=== PATIENT | male | born 1990 | race Caucasian/White ===

== ENCOUNTER 2017-01-09 22:42 | Emergency (ER) | payer SELFPAY ==
[~2017-01-09] VITALS: Ht 177.8 cm; Wt 79.4 kg
[~2017-01-09 22:42] MED LIST: AMOXICILLIN500 M2 PO; KEFLEX500 MG PO; MOTRIN800 MG PO; NAPROSYN500 MG PO; NKHM; VICODIN ES 7501 TAB PO; ZANTAC 150150 MG PO; ZANTAC150 MG PO
[2017-01-09] MEDS ORDERED: ULTRAM50 MG PO (23:21)
== END 2017-01-10 | disposition home or self-care (01) ==
LOC: ED 22:42
DX: K40.90 Unilateral inguinal hernia, without obstruction or gangrene, not specified as recurrent (principal)

== ENCOUNTER 2017-01-28 21:42 | Emergency (ER) | payer SELFPAY ==
[~2017-01-28] VITALS: Ht 177.8 cm; Wt 77.1 kg
[~2017-01-28 21:42] MED LIST changes: +ULTRAM50 MG PO
[2017-01-28] MEDS ORDERED: ULTRAM50 MG PO (22:51)
== END 2017-01-28 22:58 | disposition home or self-care (01) ==
LOC: ED 21:42
DX: K46.9 Unspecified abdominal hernia without obstruction or gangrene (principal); F17.200 Nicotine dependence, unspecified, uncomplicated

== ENCOUNTER → 2017-03-10 | Day surgery (SDC) | payer OTHER ==
[2017-03-07 12:19] LABS: BILIRUBIN NEGATIVE (NEGATIVE); BLOOD NEGATIVE (NEGATIVE); CLARITY CLEAR (CLEAR); COLOR YELLOW (YELLOW); GLUCOSE NEGATIVE (NEGATIVE); KETONE NEGATIVE (NEGATIVE); LEUKO ESTERASE NEGATIVE (NEGATIVE); NITRITE NEGATIVE (NEGATIVE); PROTEIN NEGATIVE (NEGATIVE); SPECIFIC GRAVITY <= 1.005 (1.005-1.030); UROBILINOGEN 0.2 E.U./dl (0.2-1.0)
[2017-03-07 12:30] LABS: WBC 0-2 wbc/hpf (0-5)
[2017-03-07 12:41] LABS: BASO % 0.6 % (0.0-1.0); EOS # 0.4 10*3/uL (0.0-0.4); EOS % 5.6 % (1.0-4.0); HEMATOCRIT 48.1 % (42.0-52.0); HEMOGLOBIN 16.2 g/dl (14.0-18.0); LYMPH # 3.2 10*3/uL (1.3-4.4); LYMPH % 47.7 % (27.0-41.0); MEAN CELL VOLUME 91.1 fl (80.0-94.0); MEAN CORPUSCULAR HGB 30.7 pg (27.0-31.0); MEAN CORPUSCULAR HGB CONC 33.7 g/dl (33.0-37.0); MEAN PLATELET VOLUME 9.9 fl (9.6-12.3); MONO # 0.6 10*3/uL (0.1-1.0); MONO % 8.4 % (3.0-9.0); NEUT # 2.5 10*3/uL (2.3-7.9); NEUT % 37.5 % (47.0-73.0); PLATELET COUNT AUTOMATED 258 10*3/uL (130-400); RED BLOOD COUNT 5.28 10*6/uL (4.50-5.90); RED CELL DISTRI WIDTH 13.8 % (0-14.5); WHITE BLOOD COUNT 6.6 10*3/uL (4.8-10.8)
[2017-03-07 12:45] LABS: BUN 9 mg/dl (7-24); CARBON DIOXIDE 29 mmol/L (21-32); CHLORIDE 108 mmol/L (98-107); EST GLOM FILT AFRICAN AMERICAN > 60 ml/min; GLUCOSE 89 mg/dL (65-99); POTASSIUM 4.8 mmol/L (3.5-5.1); SODIUM 141 mmol/L (136-145)
[2017-03-07 13:07] LABS: PROTHROMBIN TIME 10.7 SECONDS (9.0-12.4)
[~2017-03-10] VITALS: Ht 177.8 cm; Wt 77.1 kg
[2017-03-10] VITALS (7 sets, daily range): BP systolic 107–113; BP diastolic 62–70
[~2017-03-10] MED LIST changes: +NORCO 5-325 TA1 EACH PO
--- NOTE | ~2017-03-10 | O ---
[place], [place] OPERATIVE NOTE NAME: GALE BERGER [facility] #: [id number] UNIT #: [id number] ROOM: DOCTOR: FLEX BURTON MD BIRTHDATE: [birth year] DOS: 03/10/2017 PREOPERATIVE DIAGNOSIS: Right inguinal hernia. POSTOPERATIVE DIAGNOSIS: Right inguinal hernia. PROCEDURE: Repair of right inguinal hernia with plug and mesh (medium, light). SURGEON: Flex Burton M.D. [employer] C[employer]IED ORTHOTIST: MS3. ANESTHESIA: General with endotracheal intubation. INDICATIONS FOR PROCEDURE: This is a 26-year-old gentleman with a symptomatic right inguinal hernia, who is here for the above-mentioned procedure. The procedure and its complications were explained to the patient in detail. Complications that were discussed included but were not limited to bleeding, infection, hematoma/seroma/abscess formation, recurrence, prolonged postoperative pain and damage to underlying vital structures. He agreed to proceed. DESCRIPTION OF PROCEDURE: After identifying the patient, the patient was brought to the operating suite and laid in the supine position. After induction of general anesthesia, the parts were then painted and draped in the usual sterile fashion and a time-out procedure was called. An incision was made in the right groin parallel to the right inguinal ligament. The skin and the subcutaneous tissue were incised in the line of the incision. The external oblique aponeurosis was opened in the line of its fibers. The cord structures were identified and encircled with the help of a [place] drain and retracted away. There was no indirect hernia that could be seen. There was weakness of the posterior wall, which may make this direct hernia. A medium plug was brought in and placed over the defect and it was sutured to the overlying conjoined tendon and then the underlying upturned part of the inguinal ligament with 2-0 Prolene. Thereafter, a mesh was brought in and cut to size and encircled around the cord and sutured also to the upturned part of the inguinal ligament inferiorly and to the conjoined tendon superiorly with the help of a running 2-0 Prolene. Thereafter, the external oblique aponeurosis was reapproximated with the help of 0 Vicryl. The subcutaneous tissue was approximated with the help of 3-0 Vicryl in a running fashion and the skin edges were approximated with the help of 4-0 Vicryl in a subcuticular running fashion. Local anesthesia was infiltrated. A dressing was placed. The patient tolerated the procedure well. He was extubated uneventfully and brought back to the recovery room in a stable fashion. There were no complications. Dr. Flex Burton, the attending surgeon, was present throughout the operating case. [place], [place] OPERATIVE NOTE NAME: GALE BERGER Sunday UNIT #: [id number] ROOM: DOCTOR: FLEX BURTON MD BIRTHDATE: [birth year] Flex Burton MD CM:OPRECORD:OPERATIVE NOTE [id number] 22 FLEX BURTON MD 03/10/17 172 interface
== END | disposition home or self-care (01) ==
LOC: SDC 03-07 11:00
PROVIDERS: Surgery
DX: K40.90 Unilateral inguinal hernia, without obstruction or gangrene, not specified as recurrent (principal); F17.210 Nicotine dependence, cigarettes, uncomplicated; Z83.3 Family history of diabetes mellitus

== ENCOUNTER 2017-10-05 00:03 | Emergency (ER) | payer OTHER ==
[~2017-10-05] VITALS: Ht 180.3 cm; Wt 77.1 kg
[2017-10-05] MEDS ORDERED: PENICILLIN-VK500 M1 PO (00:27)
[2017-10-05] MEDS ORDERED: MELOXICAM7.5 MG PO (00:27)
== END 2017-10-05 00:39 | disposition home or self-care (01) ==
LOC: ED 00:03
DX: K04.7 Periapical abscess without sinus (principal); F17.200 Nicotine dependence, unspecified, uncomplicated

== ENCOUNTER 2020-06-22 20:51 | Emergency (ER) | payer OTHER ==
[~2020-06-22] VITALS: Ht 180.3 cm; Wt 81.6 kg
[~2020-06-22 20:51] MED LIST changes: +MELOXICAM7.5 MG PO; +PENICILLIN-VK500 M1 PO
[2020-06-22] MEDS ORDERED: PREDNISONE20 M1 PO (21:50)
[2020-06-22] MEDS ORDERED: VALTREX1000 MG PO (21:50)
== END 2020-06-22 22:01 | disposition home or self-care (01) ==
LOC: ED 20:51
DX: B02.9 Zoster without complications (principal); Z79.2 Long term (current) use of antibiotics

== ENCOUNTER 2020-07-07 11:57 | Emergency (ER) | payer OTHER ==
[~2020-07-07] VITALS: Wt 79.4 kg
[~2020-07-07 11:57] MED LIST changes: +PREDNISONE20 M1 PO; +VALTREX1000 MG PO
== END 2020-07-07 16:35 | disposition home or self-care (01) ==
LOC: ED 11:57
DX: T40.601A Poisoning by unspecified narcotics, accidental (unintentional), initial encounter (principal); Y92.89 Other specified places as the place of occurrence of the external cause

== ENCOUNTER 2020-09-23 12:02 | Emergency (ER) | payer OTHER ==
[~2020-09-23] VITALS: Ht 180.3 cm; Wt 80.7 kg
[2020-09-23 12:16] LABS: BASO % 0.2 % (0.0-1.0); EOS # 0.3 10*3/uL (0.0-0.4); EOS % 3.1 % (1.0-4.0); HEMATOCRIT 47.4 % (42.0-52.0); LYMPH # 2.9 10*3/uL (1.3-4.4); LYMPH % 34.7 % (27.0-41.0); MEAN CELL VOLUME 89.4 fl (80.0-94.0); MEAN CORPUSCULAR HGB 29.1 pg (27.0-31.0); MEAN CORPUSCULAR HGB CONC 32.5 g/dl (33.0-37.0); MEAN PLATELET VOLUME 9.6 fl (9.6-12.3); MONO # 0.8 10*3/uL (0.1-1.0); MONO % 9.5 % (3.0-9.0); NEUT # 4.4 10*3/uL (2.3-7.9); NEUT % 52.3 % (47.0-73.0); PLATELET COUNT AUTOMATED 285 10*3/uL (130-400); RED CELL DISTRI WIDTH 14.2 % (0-14.5); WHITE BLOOD COUNT 8.4 10*3/uL (4.8-10.8)
[2020-09-23 12:33] LABS: ALBUMIN 4.1 gm/dl (3.1-4.5); ALKALINE PHOSPHATASE 96 U/L (45-117); BUN 12 mg/dl (7-24); CHLORIDE 106 mmol/L (98-107); CREATININE 1.16 mg/dL (0.70-1.30); SGOT/AST 20 IU/L (3-35); SGPT/ALT 44 U/L (12-78); SODIUM 139 mmol/L (136-145); TOTAL PROTEIN 8.6 gm/dL (6.4-8.2)
[2020-09-23 12:35] LABS: ETHYL ALCOHOL < 3.0 mg/dl (<3); TROPONIN I < 0.015 ng/ml (<0.045)
== END 2020-09-23 17:02 | disposition home or self-care (01) ==
LOC: ED 12:02
PROVIDERS: Physician Assistant
DX: T65.91XA Toxic effect of unspecified substance, accidental (unintentional), initial encounter (principal); F17.200 Nicotine dependence, unspecified, uncomplicated; Y92.89 Other specified places as the place of occurrence of the external cause

== ENCOUNTER 2021-07-22 15:56 | Emergency (ER) | payer OTHER | END 2021-07-22 19:46 | disposition home or self-care (01) | LOC: ED 15:56 | DX: T50.901A Poisoning by unspecified drugs, medicaments and biological substances, accidental (unintentional), initial encounter (principal); R40.20 Unspecified coma; R23.0 Cyanosis; Y92.89 Other specified places as the place of occurrence of the external cause ==

== ENCOUNTER 2021-08-18 13:09 | Emergency (ER) | payer OTHER ==
[~2021-08-18] VITALS: Ht 180.3 cm; Wt 79.4 kg
== END 2021-08-18 15:16 | disposition home or self-care (01) ==
LOC: ED 13:09
DX: R09.81 Nasal congestion (principal); Z20.822 Contact with and (suspected) exposure to COVID-19; R43.8 Other disturbances of smell and taste; R11.2 Nausea with vomiting, unspecified; F17.200 Nicotine dependence, unspecified, uncomplicated

== ENCOUNTER 2021-09-10 22:26 | Emergency (ER) | payer OTHER ==
[~2021-09-10] VITALS: Ht 177.8 cm; Wt 77.1 kg
[2021-09-10 22:50] LABS: HEMATOCRIT 48.5 % (42.0-52.0); MEAN CELL VOLUME 90.3 fl (80.0-94.0); MEAN CORPUSCULAR HGB 29.8 pg (27.0-31.0); MEAN PLATELET VOLUME 9.1 fl (9.6-12.3); PLATELET COUNT AUTOMATED 434 10*3/uL (130-400); RED BLOOD COUNT 5.37 10*6/uL (4.50-5.90); WHITE BLOOD COUNT 14.2 10*3/uL (4.8-10.8)
[2021-09-10 23:23] LABS: ALBUMIN 3.8 gm/dl (3.1-4.5); ALKALINE PHOSPHATASE 96 U/L (45-117); BUN 18 mg/dl (7-24); CHLORIDE 102 mmol/L (98-107); CREATININE 1.18 mg/dL (0.70-1.30); POTASSIUM 3.8 mmol/L (3.5-5.1); SGOT/AST 35 IU/L (3-35); SGPT/ALT 58 U/L (12-78); SODIUM 137 mmol/L (136-145); TOTAL PROTEIN 8.4 gm/dL (6.4-8.2)
[2021-09-10 23:29] LABS: ATYPICAL LYMPHS 6 % (0-0); PLATELET SUFFICIENCY HIGH (NORMAL); TOTAL CELLS COUNTED 100 #CELLS
== END 2021-09-11 02:24 | disposition home or self-care (01) ==
LOC: ED 22:26
PROVIDERS: Emergency Medicine
DX: T40.1X1A Poisoning by heroin, accidental (unintentional), initial encounter (principal); Y92.89 Other specified places as the place of occurrence of the external cause

== ENCOUNTER 2023-02-12 07:48 | Emergency (ER) | payer OTHER ==
[~2023-02-12] VITALS: Ht 177.8 cm; Wt 77.1 kg
[2023-02-12 08:23] LABS: BASO # 0.1 10*3/uL (0.0-0.1); BASO % 0.8 % (0.0-1.0); EOS # 0.5 10*3/uL (0.0-0.4); EOS % 4.1 % (1.0-4.0); HEMATOCRIT 48.3 % (42.0-52.0); LYMPH # 3.7 10*3/uL (1.3-4.4); MEAN CELL VOLUME 88.5 fl (80.0-94.0); MEAN CORPUSCULAR HGB 29.1 pg (27.0-31.0); MEAN CORPUSCULAR HGB CONC 32.9 g/dl (33.0-37.0); MEAN PLATELET VOLUME 9.2 fl (9.6-12.3); MONO # 0.9 10*3/uL (0.1-1.0); MONO % 7.5 % (3.0-9.0); NEUT # 6.5 10*3/uL (2.3-7.9); NEUT % 55.4 % (47.0-73.0); PLATELET COUNT AUTOMATED 310 10*3/uL (130-400); RED BLOOD COUNT 5.46 10*6/uL (4.50-5.90); RED CELL DISTRI WIDTH 13.4 % (0-14.5); WHITE BLOOD COUNT 11.7 10*3/uL (4.8-10.8)
[2023-02-12 08:51] LABS: ALKALINE PHOSPHATASE 98 U/L (46-116); BUN 13 mg/dl (9-23); CHLORIDE 103 mmol/L (98-107); SGPT/ALT 63 U/L (10-49); TOTAL PROTEIN 7.7 gm/dL (6.0-8.0)
== END 2023-02-12 10:12 | disposition home or self-care (01) ==
LOC: ED 07:48
PROVIDERS: Emergency Medicine
DX: F19.10 Other psychoactive substance abuse, uncomplicated (principal); Z98.890 Other specified postprocedural states; Z87.891 Personal history of nicotine dependence

== ENCOUNTER 2025-01-20 11:42 | Emergency (ER) | payer MEDICAID ==
[~2025-01-20] VITALS: Ht 177.8 cm; Wt 81.6 kg
== END 2025-01-20 12:08 | disposition home or self-care (01) ==
LOC: ED 11:42
DX: T40.601A Poisoning by unspecified narcotics, accidental (unintentional), initial encounter (principal); R40.4 Transient alteration of awareness; Y92.89 Other specified places as the place of occurrence of the external cause

== ENCOUNTER 2025-02-18 04:09 | Emergency (ER) | payer MEDICAID ==
[~2025-02-18] VITALS: Ht 177.8 cm; Wt 86.2 kg
[2025-02-18] MEDS ORDERED: Ondansetron Hydrochloride 4 MG/2 ML VIAL IV ONE (04:20)
[2025-02-18] MEDS ORDERED: SODIUM CHLORIDE 0.9% 1,000 ML IV ONE (04:20)
[2025-02-18 04:38] LABS: BASO # 0.1 10*3/uL (0.0-0.1); BASO % 0.6 % (0.0-1.0); EOS # 0.2 10*3/uL (0.0-0.4); EOS % 1.6 % (1.0-4.0); HEMATOCRIT 49.2 % (42.0-52.0); MEAN CELL VOLUME 89.8 fl (80.0-94.0); MEAN CORPUSCULAR HGB 29.4 pg (27.0-31.0); MEAN CORPUSCULAR HGB CONC 32.7 g/dl (33.0-37.0); MEAN PLATELET VOLUME 9.7 fl (9.6-12.3); MONO # 0.6 10*3/uL (0.1-1.0); MONO % 4.6 % (3.0-9.0); NEUT # 10.3 10*3/uL (2.3-7.9); NEUT % 74.7 % (47.0-73.0); PLATELET COUNT AUTOMATED 336 10*3/uL (130-400); RED BLOOD COUNT 5.48 10*6/uL (4.50-5.90); RED CELL DISTRI WIDTH 14.1 % (0-14.5); WHITE BLOOD COUNT 13.7 10*3/uL (4.8-10.8)
[2025-02-18 04:52] LABS: ALKALINE PHOSPHATASE 102 U/L (46-116); BUN 10 mg/dl (9-23); CHLORIDE 102 mmol/L (98-107); LIPASE 30 U/L (12-53); POTASSIUM 4.2 mmol/L (3.4-5.1); SGPT/ALT 22 U/L (5-49)
[2025-02-18] MEDS ORDERED: Ondansetron4 MG PO (05:56)
== END 2025-02-18 06:01 | disposition home or self-care (01) ==
LOC: ED 04:09
PROVIDERS: Internal Medicine
DX: R11.2 Nausea with vomiting, unspecified (principal); F12.10 Cannabis abuse, uncomplicated; D72.829 Elevated white blood cell count, unspecified; Z98.890 Other specified postprocedural states

== ENCOUNTER 2025-03-03 05:10 | Emergency (ER) | payer MEDICAID ==
[~2025-03-03] VITALS: Ht 177.8 cm; Wt 86.2 kg
[~2025-03-03 05:10] MED LIST changes: +Ondansetron4 MG PO
[2025-03-03] MEDS ORDERED: Bacitracin Zinc 14 GM TUBE T ONE (05:30)
[2025-03-03] MEDS ORDERED: Sulfamethoxazole/Trimethopri 1 TAB TAB PO ONE (05:30)
[2025-03-03] MEDS ORDERED: SEPTDS PO (05:31)
== END 2025-03-03 05:33 | disposition home or self-care (01) ==
LOC: ED 05:10
DX: T21.21XA Burn of second degree of chest wall, initial encounter (principal); X11.0XXA Contact with hot water in bath or tub, initial encounter; Y93.89 Activity, other specified; Y92.89 Other specified places as the place of occurrence of the external cause; Y99.8 Other external cause status